=== PATIENT | female | born 2000 | race Caucasian/White ===

== ENCOUNTER 2020-02-02 13:46 | Emergency (ER) | payer OTHER ==
[~2020-02-02] VITALS: Ht 160 cm; Wt 65.3 kg
[2020-02-02 13:46] VITALS: BP 127/74
[2020-02-02] MEDS ORDERED: KEFLEX500 M1 PO (14:27)
== END 2020-02-02 14:26 | disposition home or self-care (01) ==
LOC: ER 13:46
DX: S60.861A Insect bite (nonvenomous) of right wrist, initial encounter (principal); Z90.89 Acquired absence of other organs; Z88.1 Allergy status to other antibiotic agents; W57.XXXA Bitten or stung by nonvenomous insect and other nonvenomous arthropods, initial encounter; Y93.89 Activity, other specified; Y92.89 Other specified places as the place of occurrence of the external cause; Y99.8 Other external cause status